=== PATIENT | female | born 1995 | race Caucasian/White ===

== ENCOUNTER 2017-06-03 22:01 | Emergency (ER) | payer BC ==
[~2017-06-03] VITALS: Ht 172.7 cm; Wt 61.8 kg
[2017-06-03 22:03] VITALS: TEMP 36.7; Ht 172.7 cm; Wt 61.8 kg
[2017-06-03] MEDS ORDERED: SODIUM CHLORIDE 0.9% 1000ML 1,000 ML IV STA (22:34)
[2017-06-03] MEDS ORDERED: BCPILLS PO (23:08)
[2017-06-03] MEDS ORDERED: MULT-506 PO (23:08)
[2017-06-03] MEDS ORDERED: MONT1TAB3 PO (23:08)
[2017-06-03 23:15] LABS: BASO % 0.2 %; BASO ABS # 0.01 K/uL (0-0.2); EOS % 0.2 %; EOS ABS # 0.01 K/uL (0-0.5); HEMATOCRIT 38.2 % (37-47); HEMOGLOBIN 13.5 g/dL (12.0-16.0); IG# 0.01 K/uL (0.00-0.02); LYMPH % 32.6 %; LYMPH ABS # 1.96 K/uL (1.2-3.4); MEAN CELL VOLUME 90.1 fL (80-100); MEAN CORPUSCULAR HEMOGLOBIN 31.8 pg (25-34); MEAN CORPUSCULAR HGB CONC 35.3 g/dl (32-36); MEAN PLATELET VOLUME 10.4 fL (7.4-10.4); MONO % 7.7 %; MONO ABS # 0.46 K/uL (0.11-0.59); NEUT % 59.1 %; NEUT ABS # 3.56 K/uL (1.4-6.5); PLATELET COUNT 193 K/uL (130-400); RED CELL DISTRIBUTION WIDTH CV 11.7 % (11.5-14.5); RED CELL DISTRIBUTION WIDTH SD 38.5 fL (36.4-46.3); WHITE BLOOD COUNT 6.01 K/uL (4.8-10.8)
[2017-06-03 23:42] LABS: ALBUMIN 3.9 gm/dl (3.4-5.0); CALCIUM 9.2 mg/dl (8.5-10.1); CREATININE 0.86 mg/dl (0.60-1.20); POTASSIUM 3.8 mmol/L (3.5-5.1)
[2017-06-03 23:45] LABS: TOTAL PROTEIN 7.7 gm/dl (6.4-8.2)
[2017-06-04] MEDS ORDERED: ONDANSETRON HOME PACK 4MG OD TAB PO ONE (01:15)
[2017-06-04 01:23] VITALS: BP 113/72; PULSE 61; O2SAT 98
--- NOTE | 2017-06-04 02:48 | EMERGENCY ROOM VISIT NOTE ---
History Report prepared by Amadeo: Cullen Zeng Under the Supervision of: Dr. Amador Thompson M.D. First contact with patient: 22:34 Chief Complaint: VOMITING Stated Complaint: THROWING UP FOR 5 DAYS STRAIGHT History of Present Illness The patient is a 21 year old female who presents to the Emergency Room with complaints of intermittent vomiting for five days. She states that she has been vomiting at random times throughout the day. She denies any related nausea throughout the day and she will vomit without warning. She notes that she is uninterested in eating after she vomits; otherwise she has no issues eating. She notes that she has been getting a headache above her right eye, though reports the headache has been coming and going before the vomiting began. She denies any head trauma or concussions. The last time she vomited was one hour ago while she was at [employer]. She reports that the loud noises caused her to become nauseated and she vomited. She denies getting a headache from the loud noises. She denies any changes to her hearing. She notes her left arm has become tingly for six days, though it is random. She reports the tingling sensation began after she lifted weights for the first time two weeks ago. Pt denies LOC, fevers, chills, diaphoresis, visual changes, neck pain, chest pain, breathing difficulties, abdominal pain, back pain, melena, hematochezia, urinary symptoms, numbness, weakness, rash, or other complaints. Source of History: patient Onset: five days Position: other (global) Quality: other (fever) Timing: intermittent Associated Symptoms: + headache, + nausea Note: She notes left arm tingling sensations. Review of Systems See HPI for pertinent positives and negatives. A total of ten systems were reviewed and were otherwise negative. Past Medical & Surgical Surgical Problems: (1) Hx of tonsillectomy Family History No pertinent family history Social History Smoking Status: Never Smoker Smokeless Tobacco Use: No Alcohol Use: none Drug Use: none Marital Status: single Housing Status: lives with roommate Occupation Status: [employer] Current/Historical Medications Scheduled Control Pills ( Control Pills), 1 TAB PO DAILY Montelukast Sodium (Singulair), 10 MG PO DAILY Multivitamin (Multivitamin), 1 TAB PO DAILY Allergies Coded Allergies: POLLEN (Verified Allergy, Intermediate, ITCHY EYES, SNEEZING, RUNNY NOSE, CONGESTION, 06/03/17) Sodium Bicarbonate (Verified Allergy, Intermediate, REDDENED RASH-SEE NOTE , 06/03/17) "BAKING SODA IN RAW FORM" Physical Exam Vital Signs Date Time Temp Pulse Resp B/P (MAP) Pulse Ox O2 Delivery O2 Flow Rate FiO2 06/04/17 01:23 61 16 113/72 98 Room Air 06/04/17 00:24 71 16 117/70 98 Room Air 06/03/17 22:03 36.7 94 20 124/83 96 Room Air Physical Exam GENERAL: Awake, alert, well appearing, no distress HENT: Normocephalic, atraumatic. TM's normal. Oropharynx unremarkable. EYES: PERRL. EOMI. Normal conjunctiva. Sclera non-icteric. NECK: Supple. No nuchal rigidity. FROM. No bruit. RESPIRATORY: Breath sounds equal. No wheezes. No rhonchi. CARDIAC: Normal rate. Regular rhythm. No murmurs. No rubs. No JVD. GI: Soft, non distended. No tenderness to palpation. No rebound or guarding. No masses. RECTAL: Deferred. MUSCULOSKELETAL: Unremarkable. No edema. No discoloration. Gross motor strength symmetric. NEURO: Cranial nerves 2-12 grossly intact. Normal sensorium. No sensory or motor deficits noted. Speech normal. No pronator drift. Negative rhomberg. Normal rapid alternating movements and normal heel to young. SKIN: No rash or jaundice noted. LYMPH: No adenopathy. Medical Decision & Procedures ER Provider Diagnostic Interpretation: Radiology results as stated below per my review and radiologist interpretation: CT HEAD: No acute infarct, hemorrhage, mass or edema. No acute osseous abnormality. Mild mucosal thickening or paranasal sinuses. Radiologist: Davi Jacobo MD Study ready at 00:54 and initial results transmitted at 01:02 Laboratory Results 06/03/17 22:48 Red Blood Count 4.24, Mean Corpuscular Volume 90.1, Mean Corpuscular Hemoglobin 31.8, Mean Corpuscular Hemoglobin Concent 35.3, Mean Platelet Volume 10.4, Neutrophils (%) (Auto) 59.1, Lymphocytes (%) (Auto) 32.6, Monocytes (%) (Auto) 7.7, Eosinophils (%) (Auto) 0.2, Basophils (%) (Auto) 0.2, Neutrophils # (Auto) 3.56, Lymphocytes # (Auto) 1.96, Monocytes # (Auto) 0.46, Eosinophils # (Auto) 0.01, Basophils # (Auto) 0.01 06/03/17 22:48 Test 06/03/17 22:45 06/03/17 22:48 Urine Color YELLOW Urine Appearance CLEAR (CLEAR) Urine pH 5.0 (4.5-7.5) Urine Specific [place] 1.022 (1.000-1.030) Urine Protein NEG (NEG) Urine Glucose (UA) NEG (NEG) Urine Ketones NEG (NEG) Urine Occult Blood NEG (NEG) Urine Nitrite NEG (NEG) Urine Bilirubin NEG (NEG) Urine Urobilinogen NEG (NEG) Urine Leukocyte Esterase MODERATE (NEG) Urine WBC (Auto) 10-30 /hpf (0-5) Urine RBC (Auto) 0-4 /hpf (0-4) Urine Hyaline Casts (Auto) 1-5 /lpf (0-5) Urine Epithelial Cells (Auto) >30 /lpf (0-5) Urine Bacteria (Auto) 1+ (NEG) White Blood Count 6.01 K/uL (4.8-10.8) Red Blood Count 4.24 M/uL (4.2-5.4) Hemoglobin 13.5 g/dL (12.0-16.0) Hematocrit 38.2 % (37-47) Mean Corpuscular Volume 90.1 fL (80-100) Mean Corpuscular Hemoglobin 31.8 pg (25-34) Mean Corpuscular Hemoglobin Concent 35.3 g/dl (32-36) Platelet Count 193 K/uL (130-400) Mean Platelet Volume 10.4 fL (7.4-10.4) Neutrophils (%) (Auto) 59.1 % Lymphocytes (%) (Auto) 32.6 % Monocytes (%) (Auto) 7.7 % Eosinophils (%) (Auto) 0.2 % Basophils (%) (Auto) 0.2 % Neutrophils # (Auto) 3.56 K/uL (1.4-6.5) Lymphocytes # (Auto) 1.96 K/uL (1.2-3.4) Monocytes # (Auto) 0.46 K/uL (0.11-0.59) Eosinophils # (Auto) 0.01 K/uL (0-0.5) Basophils # (Auto) 0.01 K/uL (0-0.2) RDW Standard Deviation 38.5 fL (36.4-46.3) RDW Coefficient of Variation 11.7 % (11.5-14.5) Immature Granulocyte % (Auto) 0.2 % Immature Granulocyte # (Auto) 0.01 K/uL (0.00-0.02) Anion Gap 6.0 mmol/L (3-11) Est Creatinine Clear Calc Drug Dose 101.0 ml/min Estimated GFR () 111.9 Estimated GFR (Non- 96.6 BUN/Creatinine Ratio 15.5 (10-20) Calcium Level 9.2 mg/dl (8.5-10.1) Total Bilirubin 0.4 mg/dl (0.2-1) Direct Bilirubin 0.1 mg/dl (0-0.2) Aspartate Amino Transf (AST/SGOT) 83 U/L (15-37) Alanine Aminotransferase (ALT/SGPT) 48 U/L (12-78) Alkaline Phosphatase 48 U/L (45-117) Total Protein 7.7 gm/dl (6.4-8.2) Albumin 3.9 gm/dl (3.4-5.0) Lipase 144 U/L (73-393) Human Chorionic Gonadotropin, Qual NEG (NEG) Laboratory results reviewed by me Medications Administered Medications (Trade) Dose Ordered Sig/Panfilo Route Start Time Stop Time Status Last Admin Dose Admin Sodium Chloride 1,000 ml @ 999 mls/hr Q1H1M STAT IV 06/03/17 22:34 06/03/17 23:34 DC 06/03/17 22:34 999 MLS/HR Ondansetron HCl (ZOFRAN ODT 4MG Home Pack) 1 homepack UD ONCE PO 06/04/17 01:15 06/04/17 01:16 DC 06/04/17 01:40 1 HOMEPACK ED Course 2248: The patient was evaluated in room C3. A complete history and physical exam was performed. 4: Ordered Sodium Chloride 1,000 ml @ 999 mls/hr IV 0027: I reassessed the patient at this time. She is resting comfortably. She agreed to have a head CT performed. 0110: I reassessed the patient at this time. She is feeling better and resting comfortably. I discussed the results and treatment plan with the patient. I answered all pertaining questions that she had. She expressed understanding and verbalized agreement. The patient will be discharged home. Medical Decision Triage Nursing notes reviewed. The patient's presentation and history were concerning for vomiting. Etiologies such as gastroenteritis, food borne illness, infections, obstruction , pancreatitis, appendicitis, diverticulitis, inflammatory bowel disease, GI bleed, biliary pathology, toxicologic, neurologic as well as others were entertained. The patient was evaluated. Clinically she was doing well. She had a benign abdomen. She had a nonfocal neurologic examination. She notes intermittent symptoms that appear to come and go at random. She also noted some intermittent headache and some intermittent left arm tingling sensations. The head, nausea and vomiting, and arm symptoms never occur at the same time. She had blood work obtained. She was hydrated. She was not currently nauseated and was not experiencing any of the headache or arm symptoms. She felt well on reassessment. Her blood work was unremarkable except for a slight elevation of AST. She denies any alcohol use. This could point to a viral etiology. She never has experienced upper abdominal pain to suggest a biliary pathology. The patient had a CT performed to evaluate for any intracranial pathology that may be causing this random vomiting/nausea as well as the headache on the right side with left arm tingling. This was negative. To this point the exact etiology of her symptoms is not known. I discussed conservative management and offered a Zofran home pack. The patient agreed. She will follow up with [facility] for a recheck of her current condition. If she worsens in any way or other symptoms develop she will come back to the Emergency Room for reevaluation. When the patient was having her IV taken out she did have an episode where her heart rate dropped down into the 40s but was asymptomatic with this. It rebounded without intervention. By the evaluation outlined above other emergent etiologies such as those listed in the differential, as well as others, were deemed relatively unlikely. The patient was educated about the findings as listed above. All questions were answered and the patient was pleased with the treatment. Return instructions were outlined and the patient was discharged in stable condition. The patient was referred to [facility] for follow-up for a recheck of the current condition. Medication Reconcilliation Current Medication List: was personally reviewed by me Blood Pressure Screening Patient's blood pressure: Normal blood pressure Impression Primary Impression: Vomiting Scribe Attestation The scribe's documentation has been prepared under my direction and personally reviewed by me in its entirety. I confirm that the note above accurately reflects all work, treatment, procedures, and medical decision making performed by me. Departure Information Dispostion Home / Self-Care Referrals [facility] HOME CARE DOCUMENTATION FORM, IMPORTANT VISIT INFORMATION Patient Instructions My [facility] Additional Instructions VOMITING INSTRUCTIONS: Zofran(odansetron) tablets 4mg: Take one and allow it to dissolve in your mouth every four to six hours as needed for nausea or vomiting. Ibuprofen(Motrin, Advil) may be used for fever or pain. Use 600mg every six hours as needed. Take with food. Avoid using more than 2400mg in a 24 hour period. Do not use 2400mg per day for more than three consecutive days without physician direction. Prolonged inappropriate use can lead to stomach upset or ulcers. (AND/OR) Acetaminophen(Tylenol) may be used for fever or pain. Use 1000mg every six hours as needed. Avoid using more than 4000mg in a 24 hour period. Rest and drink plenty of fluids as tolerated. Slow sips of water or sports drinks are recommended instead of large amounts all at once. Continue current medications. Once your stomach is settled start with a clear liquid diet (jello, soup broth, etc.) and then advance as tolerated. You should avoid full, heavy meals for about 24 hrs from the time your symptoms resolved. Return to the ER for persistent vomiting, fevers, abdominal pain, chest pains, difficulty breathing, black or bloody stools, worsening of your condition, or as needed. Follow up with S next week for a recheck of your current condition
--- NOTE | 2017-06-04 06:27 | DIAGNOSTIC IMAGING REPORT ---
HEAD CT NONCONTRAST CT DOSE: 537.48 mGy.cm HISTORY: vomiting, right sided headache TECHNIQUE: Multiaxial CT images of the head were performed without the use of intravenous contrast. Automated exposure control was utilized for this study. A dose lowering technique was utilized adhering to the principles of ALARA. Comparison: None. Findings: The paranasal sinuses and mastoid air cells are clear. The calvarium and skull base are intact. The ventricles and sulci are within normal limits. There is no mass, hematoma, midline shift, or acute infarct. Impression: No acute intracranial abnormality. Electronically signed by: Trevor Roach M.D. 06/04/2017 6:25 AM Dictated Date/Time: 06/04/2017 6:24 AM
== END 2017-06-04 01:40 | disposition home or self-care (01) ==
LOC: C.EDB 22:02 → C.EDC 06-04 01:40
DX: R11.2 Nausea with vomiting, unspecified (principal); R51 Headache; R20.2 Paresthesia of skin; Z79.3 Long term (current) use of hormonal contraceptives; Z91.048 Other nonmedicinal substance allergy status